=== PATIENT | female | born 1980 | race Caucasian/White ===

== ENCOUNTER → 2016-06-01 | Outpatient (REF) | payer OTHER ==
[~2016-06-01] MED LIST: CENTTAB47 PO; LEXA1TAB2 PO; MIRA33504 PO; PROTPAK PO; SUCR1TA PO
== END ==
LOC: M SFHCLERA 14:41
PROVIDERS: ATTEND Physician Assistant
DX: J02.9 Acute pharyngitis, unspecified (principal)

== ENCOUNTER 2016-06-15 14:54 | Emergency (ER) | payer OTHER ==
[2016-06-15] MEDS ORDERED: NORCO, ANEXSIA 5/325MG TABLET (HYDROcodone/ACETAMINOPHEN) As Ordered ONE (16:48)
[2016-06-15] MEDS ORDERED: ONDANSETRON 4 MG ORAL DISINTEGRATING TAB (S0181) As Ordered ONE (16:48)
--- NOTE | 2016-06-15 18:04 | EDDOCDS ---
Nurse's Notes [facility] Name: Myrna Chaves Age: 36 yrs Sex: Female : 1980 Arrival Date: 06/15/2016 Time: 14:54 Bed PR Private MD: Josue Ruth MD Diagnosis: Concussion;Unspecified injury of head Presentation: 06/15 15:02 Presenting complaint: Patient states: Pt states she was squatting while cleaning her ead fridge and when she stood up she hit her head on the freezer shelf. Incident occurred at approx 0730 this morning. Reports pain to left side of head and face. This patient has no additional risk factors. Mechanism of Injury: resulted from standing up. Adult Sepsis Screening: The patient does not have new or worsening altered mentation. Patient's respiratory rate is less than 22. Systolic blood pressure is greater than 100. Patient has a qSOFA score of 0- Negative Sepsis Screen. Suicide/Homicide risk assessment- the patient denies having any suicidal and/or homicidal ideations and does not present with any other emotional, behavioral or mental health complaints. Status: The patient is a dependent. Transition of care: patient was not received from another setting of care. 15:02 Acuity: NEEMA Level 3 ead 15:02 Method Of Arrival: Walkin/Carried/Asstd ead Triage Assessment: 15:04 General: Appears in no apparent distress, Behavior is appropriate for age, cooperative. ead Pain: Location: face Pain currently is 7 out of 10 on a pain scale. HIV screening NA for this visit Offered previously. Neurological: Level of Consciousness is awake, alert, obeys commands, Oriented to person, place, time, Reports headache. Respiratory: Airway is patent Respiratory effort is even, unlabored. GI: Reports vomiting. Derm: Skin is pink, warm & dry. 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 Protonix 40 mg Oral TbEC 1 tab bid 2. multivitamin Oral tab 1 tab daily 3. Tylenol 500 mg Oral (Last dose: 06/15/2016 14:00) - PMHx: GERD; - PSHx: Appendectomy; Arthroscopy, Knee- Right; - Social history: Smoking status: Patient states former smoker of tobacco. No barriers to communication noted, The patient speaks fluent Barbadian, Speaks appropriately for age. - : The pt / caregiver states he / she is not on anticoagulants. Home medication list is obtained from the patient. - Exposure Risk Screening:: None identified. Screenin:50 Screening information is obtained from the patient. Fall risk: No risks identified. kr3 Assistance ADL's: requires no assistance with activities of daily living. Abuse/DV Screen: The patient / caregiver reports he/she is: not in a situation that causes fear, pain or injury. Nutritional screening: No deficits noted. Advance Directives: Currently, there is no health care proxy. home support is adequate. Assessment: 16:50 Reassessment: Patient appears in no apparent distress at this time. Pain: Location: kr3 face Pain currently is 6 out of 10 on a pain scale. Neurological: No deficits noted. Respiratory: Respiratory effort is even, unlabored. Derm: Skin is normal. Vital Signs: 14:55 BP 136 / 77; Pulse 95; Resp 18 S; Temp 98.9(O); Pulse Ox 98% on R/A; Weight 79.38 kg dd6 (R); Height 5 ft. 10 in. (177.80 cm) (R); 17:50 Pain 3/10; mcp 18:02 BP 123 / 79; Pulse 91; Resp 18; Temp 99.3(T); Pulse Ox 94% on R/A; Pain 3/10; mcp 14:55 Body Mass Index 25.11 (79.38 kg, 177.80 cm) dd6 Vitals: 14:55 Log In Time: June 15, 2016 at 14:53. dd6 [place] Coma Score: 15:02 Eye Response: spontaneous(4). Verbal Response: oriented(5). Motor Response: obeys ead commands(6). Total: 15. ED Course: 14:55 Patient visited by Asim Esteves PCA. dd6 14:55 Josue Ruth is Private Physician. dd6 14:55 Patient moved to Waiting dd6 14:56 Patient moved to Pre RCE dd6 15:03 Triage Initiated ead 15:23 Patient moved to Triage 1 [facility] 16:33 Remy Horta PA is PHCP. mo1 16:33 Ashley Kim MD is Attending Physician. mo1 16:47 Patient visited by Remy Horta PA. mo1 16:49 Patient moved to TR2 kr3 16:50 The patient / caregiver is instructed regarding the plan of care and ED course. kr3 Accompanied by Family Member, Patient has correct armband on for positive identification. 17:54 Josue Ruth is Referral Physician. mo1 17:56 Patient moved to PR1 / 25 kr3 18:01 No IV's were initiated during this patient's visit. No procedures done that require mcp assistance. Administered Medications: 16:50 Drug: HYDROcodone-acetaminophen 1 tabs [hydrocodone 5 mg-acetaminophen 325 mg tablet (1 kr3 tabs)] Route: PO; 17:50 Follow up: Pain 3 Adult; Response: Confirmed pt not driving.; Pain is decreased [facility] 16:50 Drug: Ondansetron ODT 4 mg [ondansetron 4 mg disintegrating tablet (1 tabs)] Route: PO; kr3 Order Results: There are currently no results for this order. Outcome: 17:54 Discharge ordered by Provider. mo1 18:03 Patient left the ED. mcp Signatures: Dorie Greenberg RN RN mcp Robie, Kathleen, RN RN kr3 Asim Esteves, SPORTS MANAGEMENT INTERNSHIP SPORTS MANAGEMENT INTERNSHIP dd6 Remy Horta PA PA mo1 Shaunna Jackson,RN SONJA ead MTDD
--- NOTE | 2016-06-15 18:04 | EDDOCDS ---
Physician Documentation [facility] Name: Myrna Chaves Age: 36 yrs Sex: Female : 1980 Arrival Date: 06/15/2016 Time: 14:54 Bed PR Private MD: Josue Ruth MD Disposition: 06/15/16 17:54 Discharged to Home/Self Care. Impression: Concussion, Unspecified injury of head. - Condition is Stable. - Discharge Instructions: Concussion, Adult, Head Injury, Adult. - Prescriptions for [place] 5- 325 mg Oral Tablet - take 1 tablet by ORAL route every 6 hours As needed MDD: 4 tabs; 12 tablet. ZOFRAN ODT 4 mg - dissolve 1 tablet by ORAL route 4 times per day As needed do not chew, do not swallow whole; 10 tablet. - Work Release Form - 3 day, Medication Reconciliation, Local Pharmacy Hours form. - Follow up: Josue Ruth; When: Call to arrange an appointment; Reason: Recheck today's complaints, Continuance of care. - Problem is new. - Symptoms are unchanged. Historical: - Allergies: Azithromycin (Hives); - Home Meds: 1. Protonix 40 mg Oral TbEC 1 tab bid 2. multivitamin Oral tab 1 tab daily 3. Tylenol 500 mg Oral (Last dose: 06/15/2016 14:00) - PMHx: GERD; - PSHx: Appendectomy; Arthroscopy, Knee- Right; - Social history: Smoking status: Patient states former smoker of tobacco. No barriers to communication noted, The patient speaks fluent Bengali, Speaks appropriately for age. - : The pt / caregiver states he / she is not on anticoagulants. Home medication list is obtained from the patient. - Exposure Risk Screening:: None identified. 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 10 in. (177.80 cm) (R); 17:50 Pain 3/10; mcp 18:02 BP 123 / 79; Pulse 91; Resp 18; Temp 99.3(T); Pulse Ox 94% on R/A; Pain 3/10; [facility] 14:55 Body Mass Index 25.11 (79.38 kg, 177.80 cm) dd6 [place] Coma Score: 15:02 Eye Response: spontaneous(4). Verbal Response: oriented(5). Motor Response: obeys ead commands(6). Total: 15. MDM: 16:47 HYDROcodone-acetaminophen 5 mg-325 mg 1 tabs PO once ordered. mo1 16:47 Ondansetron ODT Oral Disintegrating Tablet 4 mg PO once ordered. mo1 16:48 CT Head Without Contrast Ordered. EDTX 16:51 Financial registration complete. gb Administered Medications: 16:50 Drug: HYDROcodone-acetaminophen 1 tabs [hydrocodone 5 mg-acetaminophen 325 mg tablet (1 kr3 tabs)] Route: PO; 17:50 Follow up: Pain 3/10 Adult; Response: Confirmed pt not driving.; Pain is decreased [facility] 16:50 Drug: Ondansetron ODT 4 mg [ondansetron 4 mg disintegrating tablet (1 tabs)] Route: PO; kr3 Signatures: Dispatcher MedHost EDMS Dorie Greenberg RN RN [facility] Sayra Root, Reg Reg gb Remy Horta PA PA mo1 Shaunna Jackson RN RN ead Robie, Kathleen RN kr3 MTDD
--- NOTE | 2016-06-15 18:28 | REP ---
CT BRAIN WITHOUT IV CONTRAST: CT brain is performed without IV contrast. Ventricles are normal in size and position. There is no midline shift. No abnormal densities are seen. There is no acute hemorrhage. There is no extra axial fluid collection. Jose-white differentiation is well maintained. No skull fracture is seen. Paranasal sinuses demonstrate no air fluid level. Trace mucosal thickening is seen in the ethmoid sinuses. IMPRESSION: No evidence of acute bleed or fracture. Signed by Anil Jose MD 06/15/2016 07:59 P
--- NOTE | 2016-06-17 19:04 | EDDOCDS ---
Physician Documentation [facility] Name: Myrna Chaves Age: 36 yrs Sex: Female : 1980 Arrival Date: 06/15/2016 Time: 14:54 Bed PR Private MD: Josue Ruth MD Disposition: 06/15/16 17:54 Discharged to Home/Self Care. Impression: Concussion, Unspecified injury of head. - Condition is Stable. - Discharge Instructions: Concussion, Adult, Head Injury, Adult. - Prescriptions for [place] 5- 325 mg Oral Tablet - take 1 tablet by ORAL route every 6 hours As needed MDD: 4 tabs; 12 tablet. ZOFRAN ODT 4 mg - dissolve 1 tablet by ORAL route 4 times per day As needed do not chew, do not swallow whole; 10 tablet. - Work Release Form - 3 day, Medication Reconciliation, Local Pharmacy Hours form. - Follow up: Josue Ruth; When: Call to arrange an appointment; Reason: Recheck today's complaints, Continuance of care. - Problem is new. - Symptoms are unchanged. Historical: - Allergies: Azithromycin (Hives); - Home Meds: 1. Protonix 40 mg Oral TbEC 1 tab bid 2. multivitamin Oral tab 1 tab daily 3. Tylenol 500 mg Oral (Last dose: 06/15/2016 14:00) - PMHx: GERD; - PSHx: Appendectomy; Arthroscopy, Knee- Right; - Social history: Smoking status: Patient states former smoker of tobacco. No barriers to communication noted, The patient speaks fluent Thai, Speaks appropriately for age. - : The pt / caregiver states he / she is not on anticoagulants. Home medication list is obtained from the patient. - Exposure Risk Screening:: None identified. 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 10 in. (177.80 cm) (R); 17:50 Pain 3/10; mcp 18:02 BP 123 / 79; Pulse 91; Resp 18; Temp 99.3(T); Pulse Ox 94% on R/A; Pain 3/10; mcp 14:55 Body Mass Index 25.11 (79.38 kg, 177.80 cm) dd6 [place] Coma Score: 15:02 Eye Response: spontaneous(4). Verbal Response: oriented(5). Motor Response: obeys ead commands(6). Total: 15. MDM: 16:47 HYDROcodone-acetaminophen 5 mg-325 mg 1 tabs PO once ordered. mo1 16:47 Ondansetron ODT Oral Disintegrating Tablet 4 mg PO once ordered. mo1 16:48 CT Head Without Contrast Ordered. EDMS 16:51 Financial registration complete. gb 18:08 [facility] Payment Agreement was scanned into [employer] and attached to record. gb 06/16 03:15 T-Sheet-- Draft Copy was scanned into [employer] and attached to record. hs2 Administered Medications: 06/15 16:50 Drug: HYDROcodone-acetaminophen 1 tabs [hydrocodone 5 mg-acetaminophen 325 mg tablet (1 kr3 tabs)] Route: PO; 17:50 Follow up: Pain 3/10 Adult; Response: Confirmed pt not driving.; Pain is decreased [facility] 16:50 Drug: Ondansetron ODT 4 mg [ondansetron 4 mg disintegrating tablet (1 tabs)] Route: PO; kr3 Signatures: Dispatcher [employer] EDDorie Montes RN RN [facility] Sayra Root, Reg Reg gb Remy Horta PA PA mo1 Shaunna Jackson RN RN ead Stanton, Hillary, Reg Reg hs2 Bonnie Toledo RN kr3 The chart was reviewed and I authenticate all verbal orders and agree with the evaluation and treatment provided.Attachments: 18:08 [facility] Payment Agreement gb 06/16 03:15 T-Sheet-- Draft Copy hs2 Chart Complete MTDD
--- NOTE | 2016-06-17 19:04 | EDDOCDS ---
Physician Documentation [facility] Name: Myrna Chaves Age: 36 yrs Sex: Female : 1980 Arrival Date: 06/15/2016 Time: 14:54 Bed PR Private MD: Josue Ruth MD Disposition: 06/15/16 17:54 Discharged to Home/Self Care. Impression: Concussion, Unspecified injury of head. - Condition is Stable. - Discharge Instructions: Concussion, Adult, Head Injury, Adult. - Prescriptions for [place] 5- 325 mg Oral Tablet - take 1 tablet by ORAL route every 6 hours As needed MDD: 4 tabs; 12 tablet. ZOFRAN ODT 4 mg - dissolve 1 tablet by ORAL route 4 times per day As needed do not chew, do not swallow whole; 10 tablet. - Work Release Form - 3 day, Medication Reconciliation, Local Pharmacy Hours form. - Follow up: Josue Ruth; When: Call to arrange an appointment; Reason: Recheck today's complaints, Continuance of care. - Problem is new. - Symptoms are unchanged. Historical: - Allergies: Azithromycin (Hives); - Home Meds: 1. Protonix 40 mg Oral TbEC 1 tab bid 2. multivitamin Oral tab 1 tab daily 3. Tylenol 500 mg Oral (Last dose: 06/15/2016 14:00) - PMHx: GERD; - PSHx: Appendectomy; Arthroscopy, Knee- Right; - Social history: Smoking status: Patient states former smoker of tobacco. No barriers to communication noted, The patient speaks fluent Faroese, Speaks appropriately for age. - : The pt / caregiver states he / she is not on anticoagulants. Home medication list is obtained from the patient. - Exposure Risk Screening:: None identified. 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 10 in. (177.80 cm) (R); 17:50 Pain 3/10; mcp 18:02 BP 123 / 79; Pulse 91; Resp 18; Temp 99.3(T); Pulse Ox 94% on R/A; Pain 3/10; mcp 14:55 Body Mass Index 25.11 (79.38 kg, 177.80 cm) dd6 [place] Coma Score: 15:02 Eye Response: spontaneous(4). Verbal Response: oriented(5). Motor Response: obeys ead commands(6). Total: 15. MDM: 16:47 HYDROcodone-acetaminophen 5 mg-325 mg 1 tabs PO once ordered. mo1 16:47 Ondansetron ODT Oral Disintegrating Tablet 4 mg PO once ordered. mo1 16:48 CT Head Without Contrast Ordered. EDMS 16:51 Financial registration complete. gb 18:08 [facility] Payment Agreement was scanned into [employer] and attached to record. gb 06/16 03:15 T-Sheet-- Draft Copy was scanned into [employer] and attached to record. hs2 Administered Medications: 06/15 16:50 Drug: HYDROcodone-acetaminophen 1 tabs [hydrocodone 5 mg-acetaminophen 325 mg tablet (1 kr3 tabs)] Route: PO; 17:50 Follow up: Pain 3/10 Adult; Response: Confirmed pt not driving.; Pain is decreased [facility] 16:50 Drug: Ondansetron ODT 4 mg [ondansetron 4 mg disintegrating tablet (1 tabs)] Route: PO; kr3 Signatures: Dispatcher [employer] EDDorie Montes RN RN [facility] Sayra Root, Reg Reg gb Remy Horta PA PA mo1 Shaunna Jackson RN RN ead Stanton, Hillary, Reg Reg hs2 Bonnie Toledo RN kr3 The chart was reviewed and I authenticate all verbal orders and agree with the evaluation and treatment provided.Attachments: 18:08 [facility] Payment Agreement gb 06/16 03:15 T-Sheet-- Draft Copy hs2 Chart Complete MTDD
--- NOTE | 2016-06-17 19:04 | EDDOCDS ---
Nurse's Notes [facility] Name: Myrna Chaves Age: 36 yrs Sex: Female : 1980 Arrival Date: 06/15/2016 Time: 14:54 Bed PR Private MD: Josue Ruth MD Diagnosis: Concussion;Unspecified injury of head Presentation: 06/15 15:02 Presenting complaint: Patient states: Pt states she was squatting while cleaning her ead fridge and when she stood up she hit her head on the freezer shelf. Incident occurred at approx 0730 this morning. Reports pain to left side of head and face. This patient has no additional risk factors. Mechanism of Injury: resulted from standing up. Adult Sepsis Screening: The patient does not have new or worsening altered mentation. Patient's respiratory rate is less than 22. Systolic blood pressure is greater than 100. Patient has a qSOFA score of 0- Negative Sepsis Screen. Suicide/Homicide risk assessment- the patient denies having any suicidal and/or homicidal ideations and does not present with any other emotional, behavioral or mental health complaints. Status: The patient is a dependent. Transition of care: patient was not received from another setting of care. 15:02 Acuity: NEEMA Level 3 ead 15:02 Method Of Arrival: Walkin/Carried/Asstd ead Triage Assessment: 15:04 General: Appears in no apparent distress, Behavior is appropriate for age, cooperative. ead Pain: Location: face Pain currently is 7 out of 10 on a pain scale. HIV screening NA for this visit Offered previously. Neurological: Level of Consciousness is awake, alert, obeys commands, Oriented to person, place, time, Reports headache. Respiratory: Airway is patent Respiratory effort is even, unlabored. GI: Reports vomiting. Derm: Skin is pink, warm & dry. 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 Protonix 40 mg Oral TbEC 1 tab bid 2. multivitamin Oral tab 1 tab daily 3. Tylenol 500 mg Oral (Last dose: 06/15/2016 14:00) - PMHx: GERD; - PSHx: Appendectomy; Arthroscopy, Knee- Right; - Social history: Smoking status: Patient states former smoker of tobacco. No barriers to communication noted, The patient speaks fluent Turkmen, Speaks appropriately for age. - : The pt / caregiver states he / she is not on anticoagulants. Home medication list is obtained from the patient. - Exposure Risk Screening:: None identified. Screenin:50 Screening information is obtained from the patient. Fall risk: No risks identified. kr3 Assistance ADL's: requires no assistance with activities of daily living. Abuse/DV Screen: The patient / caregiver reports he/she is: not in a situation that causes fear, pain or injury. Nutritional screening: No deficits noted. Advance Directives: Currently, there is no health care proxy. home support is adequate. Assessment: 16:50 Reassessment: Patient appears in no apparent distress at this time. Pain: Location: kr3 face Pain currently is 6 out of 10 on a pain scale. Neurological: No deficits noted. Respiratory: Respiratory effort is even, unlabored. Derm: Skin is normal. Vital Signs: 14:55 BP 136 / 77; Pulse 95; Resp 18 S; Temp 98.9(O); Pulse Ox 98% on R/A; Weight 79.38 kg dd6 (R); Height 5 ft. 10 in. (177.80 cm) (R); 17:50 Pain 3/10; mcp 18:02 BP 123 / 79; Pulse 91; Resp 18; Temp 99.3(T); Pulse Ox 94% on R/A; Pain 3/10; mcp 14:55 Body Mass Index 25.11 (79.38 kg, 177.80 cm) dd6 Vitals: 14:55 Log In Time: June 15, 2016 at 14:53. dd6 [place]pe Coma Score: 15:02 Eye Response: spontaneous(4). Verbal Response: oriented(5). Motor Response: obeys ead commands(6). Total: 15. ED Course: 14:55 Patient visited by Asim Esteves PCA. dd6 14:55 Josue Ruth is Private Physician. dd6 14:55 Patient moved to Waiting dd6 14:56 Patient moved to Pre RCE dd6 15:03 Triage Initiated ead 15:23 Patient moved to Triage 1 [facility] 16:33 Remy Horta PA is PHCP. mo1 16:33 Ashley Kim MD is Attending Physician. mo1 16:47 Patient visited by Remy Horta PA. mo1 16:49 Patient moved to TR2 kr3 16:50 The patient / caregiver is instructed regarding the plan of care and ED course. kr3 Accompanied by Family Member, Patient has correct armband on for positive identification. 17:54 Josue Ruth is Referral Physician. mo1 17:56 Patient moved to PR kr3 18:01 No IV's were initiated during this patient's visit. No procedures done that require [facility] assistance. 18:08 [facility] Payment Agreement was scanned into [employer] and attached to record. 18:31 CT Head Without Contrast Returned. EDIN 06/16 03:15 T-Sheet-- Draft Copy was scanned into [employer] and attached to record. hs2 Administered Medications: 06/15 16:50 Drug: HYDROcodone-acetaminophen 1 tabs [hydrocodone 5 mg-acetaminophen 325 mg tablet (1 kr3 tabs)] Route: PO; 17:50 Follow up: Pain 10 Adult; Response: Confirmed pt not driving.; Pain is decreased [facility] 16:50 Drug: Ondansetron ODT 4 mg [ondansetron 4 mg disintegrating tablet (1 tabs)] Route: PO; kr3 Order Results: Radiology Order: CT Head Without Contrast Test: CT Head Without Contrast REASON FOR EXAMINATION: Trauma; CT BRAIN WITHOUT IV CONTRAST:; ; CT brain is performed without IV contrast. Ventricles are normal in size and; position. There is no midline shift. No abnormal densities are seen. There is no; acute hemorrhage. There is no extra axial fluid collection. Jose-white; differentiation is well maintained. No skull fracture is seen. Paranasal sinuses; demonstrate no air fluid level. Trace mucosal thickening is seen in the ethmoid; sinuses.; ; IMPRESSION:; ; No evidence of acute bleed or fracture.; ; ; Signed by; Anil Jose MD 06/15/2016 07:59 P; Outcome: 17:54 Discharge ordered by Provider. mo1 18:03 Patient left the ED. [facility] Signatures: Dispatcher MedHost EDIN Dorie Greenberg RN RN [facility] Sayra Root, Reg Reg Bonnie Toledo RN RN kr3 Asim Esteves, WEDGER MACHINE WEDGER MACHINE dd6 Remy Horta PA PA mo1 Shaunna Jackson,RN RN fernandezd Susie Palencia, Reg Reg hs2 Chart Complete MTDD
== END 2016-06-15 18:03 | disposition home or self-care (01) ==
LOC: M ED 14:54
DX: S06.0X0A Concussion without loss of consciousness, initial encounter (principal); W22.8XXA Striking against or struck by other objects, initial encounter; Y92.019 Unspecified place in single-family (private) house as the place of occurrence of the external cause; Y93.89 Activity, other specified; Y99.8 Other external cause status; K21.9 Gastro-esophageal reflux disease without esophagitis; Z87.891 Personal history of nicotine dependence; Z79.899 Other long term (current) drug therapy; Z88.1 Allergy status to other antibiotic agents

== ENCOUNTER → 2017-02-28 | Outpatient (REF) | payer OTHER ==
[~2017-02-28] MED LIST changes: +MOTR200T44 PO; +NORCOTAB PO; +PHEN1SUP6 PR; +PROBCAP4 PO; +RANI15TA PO; +TYLE500T78 PO; +ZOFR4TAB3 PO
== END ==
LOC: M SFHCLERA 15:29
PROVIDERS: ATTEND Nurse Practitioner Family
DX: R30.0 Dysuria (principal)

== ENCOUNTER 2017-03-04 11:09 | Emergency (ER) | payer OTHER ==
[~2017-03-04] VITALS: Ht 177.8 cm; Wt 77.3 kg
[~2017-03-04 11:09] MED LIST changes: -MOTR200T44 PO; -NORCOTAB PO; -PHEN1SUP6 PR; -PROBCAP4 PO; -RANI15TA PO; -TYLE500T78 PO; -ZOFR4TAB3 PO
[2017-03-04] MEDS ORDERED: PROBCAP4 PO (11:24)
[2017-03-04] MEDS ORDERED: RANI15TA PO (11:24)
[2017-03-04] MEDS ORDERED: NS 1,000 ML IV ONE (12:15)
[2017-03-04] MEDS ORDERED: ONDANSETRON 4MG/2ML VIAL (J2405) IV ONE (12:15)
[2017-03-04] MEDS ORDERED: MORPHINE 4 MG/ML 1ML SYRINGE IV PRN (12:15)
[2017-03-04 13:00] LABS: BASO % 0.3 % (0.0-1.0); EOS % 0.1 % (0.0-3.0); IMMATURE GRANULOCYTE % 0.1 % (0-0); LYMPH # 2.6 10^3/uL (1.5-4.5); LYMPH % 26.7 % (24.0-44.0); MEAN CORPUSCULAR HEMOGLOBIN 30.1 pg (27.0-33.0); MEAN CORPUSCULAR HGB CONC 35.4 g/dl (32.0-36.5); MONO # 0.5 10^3/uL (0.0-0.8); MONO % 4.6 % (0.0-5.0); NEUTROPHILS # 6.7 10^3/uL (1.8-7.7); NEUTROPHILS % 68.2 % (36.0-66.0); PLATELET COUNT, AUTOMATED 271 10^3/uL (150-450); RED CELL DISTRIBUTION WIDTH 11.3 % (11.5-14.5); WHITE BLOOD COUNT 9.8 10^3/uL (4.0-10.0)
[2017-03-04 13:28] LABS: ALBUMIN 4.3 GM/DL (3.2-5.2); ALBUMIN/GLOBULIN RATIO 1.65 (1.00-1.93); ALKALINE PHOSPHATASE 48 U/L (45-117); ALT/SGPT 14 U/L (12-78); AMYLASE 43 U/L (25-115); ANION GAP 10 MEQ/L (8-16); AST/SGOT 6 U/L (15-37); BILIRUBIN,DIRECT 0.2 MG/DL (0.0-0.2); BILIRUBIN,TOTAL 0.5 MG/DL (0.2-1.0); BLOOD UREA NITROGEN 11 MG/DL (7-18); CALCIUM LEVEL 9.9 MG/DL (8.5-10.1); CARBON DIOXIDE LEVEL 25 MEQ/L (21-32); CHLORIDE LEVEL 103 MEQ/L (98-107); CREATININE FOR GFR 0.79 MG/DL (0.55-1.02); GLOMERULAR FILTRATION RATE > 60.0 (>60); GLUCOSE, FASTING 93 MG/DL (70-105); POTASSIUM SERUM 3.8 MEQ/L (3.5-5.1); SODIUM LEVEL 138 MEQ/L (136-145); TOTAL PROTEIN 6.9 GM/DL (6.4-8.2)
[2017-03-04 13:55] LABS: CONTROL LINE UCG INT CTR LINE PRESENT
[2017-03-04] MEDS ORDERED: PHEN1SUP6 PR (14:47)
[2017-03-04] MEDS ORDERED: NORCOTAB PO (15:07)
[2017-03-04 15:19] VITALS: BP 128/76
--- NOTE | 2017-03-04 15:41 | REP ---
Right upper quadrant sonography: History: Right upper quadrant pain. Comparison study: June 08, 2014. Findings: Scanning through the right upper quadrant of the abdomen demonstrates a normal sized, thin-walled gallbladder without evidence of stone or polyp. Common bile duct is normal measuring 0.6 cm in greatest diameter. No focal liver lesion is seen. Liver size is normal. No pancreatic abnormality is observed. No right renal abnormality is seen. There is no evidence of ascites. The right kidney measures 11.5 x 4.3 x 3.4 cm. Impression: Negative right upper quadrant sonography. Signed by Derrick Guaman MD 03/04/2017 12:39 P
[2017-03-27] MEDS ORDERED: TYLE500T78 PO (14:57)
[2017-03-27] MEDS ORDERED: MOTR200T44 PO (14:57)
[2017-03-27] MEDS ORDERED: PROTPAK PO (14:57)
== END 2017-03-04 15:20 | disposition home or self-care (01) ==
LOC: M ED 11:09
DX: K80.51 Calculus of bile duct without cholangitis or cholecystitis with obstruction (principal); N39.0 Urinary tract infection, site not specified; Z79.899 Other long term (current) drug therapy; Z88.1 Allergy status to other antibiotic agents
CPT/HCPCS: 76705; 80048; 80076; 81001; 81025; 82150; 83690; 84703; 85025; 96361; 96374; 96375; 99284; J2405

== ENCOUNTER 2017-03-11 14:23 | Emergency (ER) | payer OTHER ==
[~2017-03-11] VITALS: Ht 177.8 cm; Wt 77.3 kg
[~2017-03-11 14:23] MED LIST changes: +NORCOTAB PO; +PHEN1SUP6 PR; +PROBCAP4 PO; +RANI15TA PO
[2017-03-11] MEDS ORDERED: ONDANSETRON 4MG/2ML VIAL (J2405) IV ONE (16:45)
[2017-03-11] MEDS ORDERED: NS 1,000 ML IV ONE (16:45)
[2017-03-11] MEDS ORDERED: MORPHINE 4 MG/ML 1ML SYRINGE IV PRN (16:45)
[2017-03-11 17:22] LABS: BASO % 0.3 % (0.0-1.0); EOS % 0.1 % (0.0-3.0); IMMATURE GRANULOCYTE % 0.3 % (0-0); LYMPH # 3.2 10^3/uL (1.5-4.5); LYMPH % 27.2 % (24.0-44.0); MEAN CORPUSCULAR HEMOGLOBIN 29.8 pg (27.0-33.0); MEAN CORPUSCULAR HGB CONC 35.1 g/dl (32.0-36.5); MEAN CORPUSCULAR VOLUME 84.9 fl (80.0-96.0); MONO # 0.6 10^3/uL (0.0-0.8); NEUTROPHILS # 7.9 10^3/uL (1.8-7.7); NEUTROPHILS % 67.1 % (36.0-66.0); PLATELET COUNT, AUTOMATED 250 10^3/uL (150-450); RED CELL DISTRIBUTION WIDTH 11.1 % (11.5-14.5); WHITE BLOOD COUNT 11.7 10^3/uL (4.0-10.0)
[2017-03-11 17:51] LABS: ALBUMIN 4.2 GM/DL (3.2-5.2); ALBUMIN/GLOBULIN RATIO 1.24 (1.00-1.93); ALKALINE PHOSPHATASE 52 U/L (45-117); ALT/SGPT 16 U/L (12-78); ANION GAP 8 MEQ/L (8-16); AST/SGOT 7 U/L (15-37); BILIRUBIN,DIRECT 0.1 MG/DL (0.0-0.2); BILIRUBIN,TOTAL 0.6 MG/DL (0.2-1.0); BLOOD UREA NITROGEN 12 MG/DL (7-18); CALCIUM LEVEL 9.6 MG/DL (8.5-10.1); CARBON DIOXIDE LEVEL 23 MEQ/L (21-32); CHLORIDE LEVEL 105 MEQ/L (98-107); CREATININE FOR GFR 0.87 MG/DL (0.55-1.02); GLOMERULAR FILTRATION RATE > 60.0 (>60); GLUCOSE, FASTING 86 MG/DL (70-105); POTASSIUM SERUM 3.7 MEQ/L (3.5-5.1); SODIUM LEVEL 136 MEQ/L (136-145); TOTAL PROTEIN 7.6 GM/DL (6.4-8.2)
[2017-03-11] MEDS ORDERED: KETOROLAC 30 MG/ML VIAL (J1885) IV ONE (18:15)
--- NOTE | 2017-03-11 19:10 | REPUSA ---
HISTORY: RUQ PAIN. TECHNIQUE: Limited right upper quadrant ultrasound examination with color flow Doppler imaging. FINDINGS: Liver is of normal size with no pathologic mass seen. No ascites is seen. Biliary tree and gallbladder are normal with no gallstones seen. Gallbladder wall thickness measures 1.6 mm and common bile duct measures 2.5-5.1 mm. Limited imaging of the pancreas is normal with no mass seen. Right kidney is normal and measures 9.6 x 3.9 x 5 point or centimeter with no mass, hydronephrosis, or calculi seen. No pathologic mass or abnormal fluid collections seen in the right upper quadrant. IMPRESSION: Negative right upper quadrant ultrasound examination as discussed above. .
[2017-03-11] MEDS ORDERED: ZOFR4TAB3 PO (20:15)
[2017-03-11] MEDS ORDERED: NORCOTAB PO (20:15)
[2017-03-11 20:33] VITALS: BP 109/66
[2017-03-27] MEDS ORDERED: PROTPAK PO (14:57)
[2017-03-27] MEDS ORDERED: TYLE500T78 PO (14:57)
[2017-03-27] MEDS ORDERED: MOTR200T44 PO (14:57)
== END 2017-03-11 20:34 | disposition home or self-care (01) ==
LOC: M ED 14:23
DX: K80.50 Calculus of bile duct without cholangitis or cholecystitis without obstruction (principal); F41.9 Anxiety disorder, unspecified; Z87.891 Personal history of nicotine dependence; Z88.1 Allergy status to other antibiotic agents; Z79.899 Other long term (current) drug therapy
CPT/HCPCS: 76705; 80048; 80076; 81001; 81025; 83690; 85025; 96374; 96375; 99284; J1885; J2405

== ENCOUNTER → 2017-03-14 | Outpatient (CLI) | payer OTHER ==
[~2017-03-14] MED LIST changes: +MOTR200T44 PO; +TYLE500T78 PO; +ZOFR4TAB3 PO
[2017-03-14 11:17] LABS: MICROSCOPIC INDICATED? MAN YES (NO)
[2017-03-14 11:20] LABS: MEAN CORPUSCULAR HEMOGLOBIN 29.4 pg (27.0-33.0); MEAN CORPUSCULAR HGB CONC 34.4 g/dl (32.0-36.5); MEAN CORPUSCULAR VOLUME 85.4 fl (80.0-96.0); RED CELL DISTRIBUTION WIDTH 11.1 % (11.5-14.5); WHITE BLOOD COUNT 9.1 10^3/uL (4.0-10.0)
[2017-03-14 11:24] LABS: HYALINE CAST, URINE NONE SEEN /lpf (0-1); SQUAMOUS EPITHELIAL CELL URINE LARGE AMOUNT /hpf (SMALL AMT)
[2017-03-14 11:25] LABS: MICROSCOPIC EXAM PERFORMED; WBC, URINE 20-30 /hpf (0-3)
[2017-03-14 11:26] LABS: BACTERIA, URINE MOD AMOUNT
[2017-03-14 11:31] LABS: CBCMD ORDERED? YES (YES)
[2017-03-14 12:01] LABS: BASOPHILS 1 % (0-4)
== END ==
LOC: M LAB 10:24
PROVIDERS: ATTEND Surgery
DX: R10.11 Right upper quadrant pain (principal)

== ENCOUNTER → 2017-04-27 | Outpatient (CLI) | payer OTHER ==
[2017-04-27 14:13] LABS: MEAN CORPUSCULAR HEMOGLOBIN 30.1 pg (27.0-33.0); MEAN CORPUSCULAR VOLUME 88.6 fl (80.0-96.0); PLATELET COUNT, AUTOMATED 333 10^3/uL (150-450); RED CELL DISTRIBUTION WIDTH 11.7 % (11.5-14.5); WHITE BLOOD COUNT 7.3 10^3/uL (4.0-10.0)
[2017-04-27 15:00] LABS: ALBUMIN 4.5 GM/DL (3.2-5.2); ALBUMIN/GLOBULIN RATIO 1.55 (1.00-1.93); ALKALINE PHOSPHATASE 50 U/L (45-117); ALT/SGPT 16 U/L (12-78); AMYLASE 54 U/L (25-115); ANION GAP 6 MEQ/L (8-16); AST/SGOT 7 U/L (7-37); BILIRUBIN,TOTAL 0.5 MG/DL (0.2-1.0); BLOOD UREA NITROGEN 16 MG/DL (7-18); CALCIUM LEVEL 10.1 MG/DL (8.5-10.1); CARBON DIOXIDE LEVEL 29 MEQ/L (21-32); CHLORIDE LEVEL 103 MEQ/L (98-107); CREATININE FOR GFR 0.79 MG/DL (0.55-1.02); GLOMERULAR FILTRATION RATE > 60.0 (>60); GLUCOSE, FASTING 86 MG/DL (70-105); POTASSIUM SERUM 4.7 MEQ/L (3.5-5.1); SODIUM LEVEL 138 MEQ/L (136-145); TOTAL PROTEIN 7.4 GM/DL (6.4-8.2)
[2017-04-29 00:07] LABS: ENDOMYSIAL ABY IgA Negative (Negative)
== END ==
LOC: M SMT 08:54
PROVIDERS: ATTEND Physician Assistant Medical
DX: K59.00 Constipation, unspecified (principal)

== ENCOUNTER → 2017-06-07 | Outpatient (CLI) | payer OTHER | LOC: M LRY 10:28 | DX: S99.922A Unspecified injury of left foot, initial encounter (principal); X58.XXXA Exposure to other specified factors, initial encounter; Y92.89 Other specified places as the place of occurrence of the external cause; Y93.89 Activity, other specified; Y99.8 Other external cause status | CPT/HCPCS: 73630; G0463 ==

== ENCOUNTER 2018-08-21 10:19 | Inpatient (IN) | payer OTHER ==
[~2018-08-21] VITALS: Ht 177.8 cm; Wt 90.0 kg
[~2018-08-21 10:19] MED LIST changes: +HYDR-3715 PO; -NORCOTAB PO; +ZOFR4TAB14 PO; -ZOFR4TAB3 PO
[2018-08-21] MEDS ORDERED: PANT40TA3 PO (10:34)
[2018-08-21] MEDS ORDERED: CITA40TA4 PO (10:34)
[2018-08-21 11:01] LABS: HEMATOCRIT 42.6 % (36.0-47.0); HEMOGLOBIN 14.6 g/dl (12.0-15.5); MEAN CORPUSCULAR HEMOGLOBIN 29.7 pg (27.0-33.0); MEAN CORPUSCULAR HGB CONC 34.3 g/dl (32.0-36.5); MEAN CORPUSCULAR VOLUME 86.6 fl (80.0-96.0); PLATELET COUNT, AUTOMATED 337 10^3/uL (150-450); RED BLOOD COUNT 4.92 10^6/uL (4.00-5.40); WHITE BLOOD COUNT 11.4 10^3/uL (4.0-10.0)
[2018-08-21 11:43] LABS: ACETAMINOPHEN LEVEL < 2.0 UG/ML (10.0-30.0); ALBUMIN 4.1 GM/DL (3.2-5.2); ALT/SGPT 22 U/L (12-78); BILIRUBIN,DIRECT < 0.1 MG/DL (0.0-0.2); BILIRUBIN,TOTAL 0.5 MG/DL (0.2-1.0); BLOOD UREA NITROGEN 10 MG/DL (7-18); CALCIUM LEVEL 9.2 MG/DL (8.5-10.1); CARBON DIOXIDE LEVEL 24 MEQ/L (21-32); CHLORIDE LEVEL 106 MEQ/L (98-107); CREATININE FOR GFR 0.83 MG/DL (0.55-1.30); ETHYL ALCOHOL (ETHANOL) < 0.003 % (0.000-0.010); GLOMERULAR FILTRATION RATE > 60.0 (>60); GLUCOSE, FASTING 88 MG/DL (70-100); SALICYLATE LEVEL < 1.7 MG/DL (5.0-30.0); SODIUM LEVEL 138 MEQ/L (136-145); THYROID STIMULATING HORMONE 0.934 uIU/ML (0.358-3.740); TOTAL PROTEIN 7.3 GM/DL (6.4-8.2)
[2018-08-21 11:57] LABS: HCG, SERUM QUALITATIVE NEGATIVE (NEGATIVE)
[2018-08-21 12:00] LABS: AMPHETAMINES LEVEL URINE NEGATIVE (NEGATIVE); BARBITURATES URINE NEGATIVE (NEGATIVE); BENZODIAZEPINES URINE NEGATIVE (NEGATIVE); CANNABINOIDS URINE NEGATIVE (NEGATIVE); COCAINE METABOLITE URINE NEGATIVE (NEGATIVE); METHADONE URINE NEGATIVE (NEGATIVE); OPIATES URINE NEGATIVE (NEGATIVE); PHENCYCLIDINE URINE NEGATIVE (NEGATIVE)
[2018-08-21] MEDS ORDERED: MOM 30ML SUSPENSION UDC PO PRN (22:45)
[2018-08-21] MEDS ORDERED: ACETAMINOPHEN TAB 650MG DOSE (2X325MG) PO PRN (22:45)
[2018-08-21] MEDS ORDERED: traZODone 50 MG TAB PO PRN (22:45)
[2018-08-21] MEDS ORDERED: MAALOX 30 ML SUSP *UDC PO PRN (22:45)
[2018-08-21 23:09] VITALS: BP 141/80
[2018-08-22 06:35] VITALS: BP 138/72
[2018-08-22] MEDS: NICOTINE 21MG/24HR 1 EA TRANSDERMAL TD SCH (08:13)
[2018-08-22] MEDS ORDERED: hydrOXYzine 50 MG TAB PO PRN (12:45)
--- NOTE | 2018-08-22 13:18 | MHHPEPDOC ---
General Legal Status: 9.39 Chief Complaint "I had too much to drink, apparently but I have not been depressed and I'm not suicidal". History of Present Illness HISTORY OF THE PRESENT ILLNESS: Patient is a 38 -year-old , female, who as per ED report: "Pt. states she has been feeling depressed, worsening over past couple weeks. She reports hhaving vague suicidal thoughts, stating she doesn't think she would act on them but unsure if she continues to feel so depressed without getting help.She states she hs had thoughts of driving her car into a tree. She reports that she went to walk in clinic today, was not able to be seen due to high volume of pt's. She then had her bring her to ER, stating she is not able to wait any longer to see someone because she feels so overwhelmed. She has been taking cCelexa 40 mg and states it is no longer working as it did. She is pleasant, communicative, appears quite depressed, tearful." Psychiatric Review of Systems Depression (2 or more weeks): depressed mood, anhedonia, insomnia/hypersomnia (either sleeps all day or doesn't sleep at all), feelings of excess/guilt (she feels this is affecting her son), feelings of worthlesness (She has gained weight since being on Celexa, she has gained 40-50 pounds, she has increasded too much on the wrong foods (wrong foods)), decreased energy, difficulty concentrating (sometimes she is foggy ), appetite changes, psychomotor changes, suicidal thoughts (she had only one thought over the weekend) Jodi (4 or more days of): denies Psychosis: denies PTSD: denies Anxiety: gen/non-specific anxiety, situational anxiety, stressor related anxiety, panic attacks Anxiety/ 6 months or more of: restlessness, keyed up, easily fatigued, difficulty concentrating, irritability (close to her period, she becomes easily frustrated), muscle tension (sometimes "I feel more muscle twitches", is not constant., mainly when she's laying down or sitting on the couch trying to relax), sleep disturbance Past Psychiatric History Previous Psychiatric Diagnosis: Diagnosed with LOKESH, she was started on Celexa, it helped her with anxiety but she gained weight Previous Psychiatric Admissions: Denies. Suicide Attempts: Denies Psychiatric Follow-up: Denies, but she wants to get established with a therapist or a psychiatrist or both Psychiatric medications: Celexa and prior to Celexa, she took Zoloft but she gained weight as well (She has gained it with Celexa). Past Medical History Head Injury: Yes (She had a concussion about 1.5 years ago, she got a CT scan in here and it was normal) Seizures: No Hospitalizations: Yes (For an appendectomy in 2004 and for vaginal delivery) Surgeries: Yes (appendectomy and vaginal delivery of her son (7 years old)) Family Medical/Psychiatric HX Medical Problems Mother is bipolar, her side of the family is bipolar too. In her paternal side of the family there's blood clots and heart attacks Psychiatric Disorders: Yes (bipolar d/o in mother and maternal side of the family) Addiction: Yes (Smoking) Suicide Attemps/Completions: Yes (Mother. She tried to choke herself by tying a scarf to her neck.) Addiction History nicotine (She quit in 2009), alcohol, other (weed, when she was in college, 15 years ago) Social History Childhood: "it was good". 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 Legal: Denies Marital: she's been for 10 years and she has a 7 year old boy. Mental Status Examination General Appearance: well groomed, appears stated age, hospital scubs/clothing Build: overweight Demeanor: preoccupied Eye Contact: average Activity: average Behavior: cooperative Speech: clear, spontaneous, reg/rate,rhythm,volume Mood: depressed, anxious Affect: appropriate, congruent, anxious, other (depressed, almost tearful at times) Thought Process: logical/linear, associative Thought Content (Delusions): none reported Thought Content (Other): preoccupied Thought Content (Aggressive): none reported Perception (Hallucinations): none reported Perception (Other): none reported Cognition (Impairment of): none reported Cognition(Intelligence Est.): average Oriented: Awake, Alert, Oriented times three Insight: good Judgment: Good Psychosis: Denies Diagnoses 1. Major Depressive Disorder 2. Generalized Anxiety Disorder Assessment Patient is insightful, she knows she needed to be hospitalized, she says that she "broke down" now that her is back (he is in the [employer] and he was not in this area) she felt that she finally could let her feelings out because he can take care of the dog, she will not be alone with her child struggling with depression as she has been, because he can take care of their child too. she was in the [employer] but she some years ago because she needed to take care of their child. She has a maternal history of bipolar disorder and knows she is at risk of developing the disease but she didn't endorse feelings/symptoms of jodi. she says her mother is more depressed than manic and so are other family members from her mother's side. Problem List Problems: (1) Anxiety associated with depression Status: Chronic Initial Treatment Plan 1. Patient was admitted on a [9.39] status. 2. Complete history was obtained. 3. With patients permission, family will be contacted and database will be expanded. 4. Patients medication regimen will be reviewed and changed accordingly. 5. Patient will be provided with protected environment. 6. Patient will be treated with individual, group, and milieu therapies. 7. Patient will receive supportive psych-education. 8. Discharge planning will commence immediately. 9. Outpatient follow-up treatment will be strongly recommended. 10. The initial treatment plan will focus initially on: * Depression. * anxiety * Risk for suicide. * Substance abuse. ESTIMATED LENGTH OF STAY: 5-7 DAYS. TIME SPENT COUNSELING AND COORDINATING INITIAL CARE: 60 minutes. Vital Signs Vital Signs Date Time Temp Pulse Resp B/P (MAP) Pulse Ox O2 Delivery O2 Flow Rate FiO2 08/22/18 06:35 99.1 76 18 138/72 (94) 08/21/18 19:55 99 Room Air Medications Scheduled Citalopram Hydrobromide (Citalopram Hydrobromide) 40 Mg Tab, 40 MG PO DAILY, (Reported) Pantoprazole Sodium (Pantoprazole Sodium) 40 Mg Tab, 40 MG PO DAILY, (Reported) Allergies Coded Allergies: azithromycin (Verified Allergy, Intermediate, HIVES, 08/21/18) morphine (Verified Adverse Reaction, Intermediate, MUSCLE TIGHTNESS, 08/21/18) LASHAUN VELARDE MD Aug 22, 2018 12:36
[2018-08-22] MEDS: VENLAFAXINE 37.5 MG TAB PO SCH (13:44)
[2018-08-22 18:00] VITALS: BP 118/62
[2018-08-22] MEDS: ARIPiprazole 2 MG TAB PO SCH (20:10)
[2018-08-22] MEDS: PANTOPRAZOLE 40MG TAB (PROTONIX) PO SCH (20:11)
--- NOTE | 2018-08-22 20:27 | HPE ---
DATE OF ADMISSION: 08/21/2018 CHIEF COMPLAINT: Medical admission note. PRIMARY CARE PROVIDER: Mireya Cisse. HISTORY OF THE PRESENT ILLNESS: The patient is a 38-year-old female who has been admitted, states that she has been feeling depressed and was having suicidal thoughts, and that she has had too much to drink lately. Otherwise see psychiatric note for full details. PAST MEDICAL HISTORY: Gastroesophageal reflux disease. Alcohol abuse. PAST SURGICAL HISTORY: Appendectomy in 2004. Anterior cruciate ligament (ACL) repair in 2009. HOME MEDICATIONS: - Protonix 40 mg daily FAMILY HISTORY: On her mother's side - bipolar disorder, father's side - heart disease. SOCIAL HISTORY: She lives with her and son. She has about a 10 pack-year history of tobacco but quit 2 years ago. Drinks once a month and usually two glasses of wine. No illicit substance abuse. 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 ALLERGIES: AZITHROMYCIN - hives. MORPHINE - shortness of breath. REVIEW OF SYSTEMS: A 10-point review of systems is negative. OBJECTIVE: VITAL SIGNS: Temperature 100.6 at the time of her presentation yesterday morning, temperature currently 99.1, pulse 76, respiratory rate 18, blood pressure 138/72, oxygen saturation 99% on room air. GENERAL: She is a pleasant middle-aged female, awake, alert, oriented times three, sitting out of bed. She does not appear to be in acute distress. She is examined, was accompanied by a female staff member. HEENT: She is wearing glasses. Cranial nerves II-XII are grossly intact. She has moist mucous membranes. CARDIOVASCULAR: S1, S2 regular. RESPIRATORY EXAM: Clear. ABDOMINAL EXAM: Benign. EXTREMITIES: No clubbing, cyanosis, or edema. LABORATORY STUDIES: She presented with a WBC of 11.4, hemoglobin 14.6, platelet 337. Chemistry panel: Sodium 138, potassium 4.0, chloride 106, bicarbonate 24, BUN 10, creatinine 0.8. TSH within normal limits. HCG is negative. Urine toxicology is negative. No microbiology or imaging. ASSESSMENT AND PLAN: This is a 38-year-old female admitted for depressive disorder. PROBLEMS: 1. Depressive disorder, managed as per psychiatry. 2. Fever. The patient did have a temperature of 100.6 at the time of her presentation, and she did have leukocytosis. I will recheck a CBC, draw blood cultures, order a UA with reflex urine culture, as well as a repeat BMP and monitor her for any recurrence in her fevers. My suspicion is that this is related to alcohol abuse, and she may be exhibiting some withdrawal symptoms. Will have to monitor her closely as she denies a history of this. 3. Gastroesophageal reflux disease. She will be continued on her Protonix, and she will require close followup with her primary care provider. 4. Further management as per psychiatry. Followup with primary care provider (PCP) on discharge. :
[2018-08-22 21:08] LABS: BLOOD UREA NITROGEN 20 MG/DL (7-18); CALCIUM LEVEL 9.3 MG/DL (8.5-10.1); CARBON DIOXIDE LEVEL 28 MEQ/L (21-32); CHLORIDE LEVEL 105 MEQ/L (98-107); CREATININE FOR GFR 0.92 MG/DL (0.55-1.30); GLOMERULAR FILTRATION RATE > 60.0 (>60); GLUCOSE, FASTING 106 MG/DL (70-100); POTASSIUM SERUM 4.1 MEQ/L (3.5-5.1); SODIUM LEVEL 139 MEQ/L (136-145)
[2018-08-22 21:10] LABS: HEMATOCRIT 41.9 % (36.0-47.0); HEMOGLOBIN 14.3 g/dl (12.0-15.5); MEAN CORPUSCULAR HEMOGLOBIN 29.5 pg (27.0-33.0); MEAN CORPUSCULAR HGB CONC 34.1 g/dl (32.0-36.5); MEAN CORPUSCULAR VOLUME 86.6 fl (80.0-96.0); PLATELET COUNT, AUTOMATED 354 10^3/uL (150-450); RED BLOOD COUNT 4.84 10^6/uL (4.00-5.40); WHITE BLOOD COUNT 10.3 10^3/uL (4.0-10.0)
--- NOTE | 2018-08-22 21:57 | ECGEPIP ---
Stationary ECG Study [facility] - ED Test Date: 2018-08-21 Pat Name: WILLIAMS FRIEDMAN Department: Room: - Gender: F Reporting Process Consultant: PMO : 1980 Requested By: Ashley Kim Order Number: [id number] Reading MD: Guero Brown Measurements Intervals [place] Rate: 55 P: 53 MD: 157 QRS: 60 QRSD: 85 T: 18 QT: 430 QTc: 413 Interpretive Statements SINUS BRADYCARDIA INCOMPLETE RIGHT BUNDLE BRANCH BLOCK NSTTW ABNORMALITIES SIMILAR TO 01/07/15 Electronically Signed On 08-22-2018 21:57:39 EDT by Guero Brown
[2018-08-23 06:36] VITALS: BP 134/62
[2018-08-23] MEDS: NICOTINE 21MG/24HR 1 EA TRANSDERMAL TD SCH (09:00)
[2018-08-23] MEDS ORDERED: VENLAFAXINE 37.5 MG TAB PO SCH (09:00)
[2018-08-23] MEDS: VENLAFAXINE 37.5 MG TAB PO SCH (09:09)
[2018-08-23] MEDS: PANTOPRAZOLE 40MG TAB (PROTONIX) PO SCH (09:09)
[2018-08-23 18:00] VITALS: BP 132/82
[2018-08-23] MEDS: ARIPiprazole 2 MG TAB PO SCH (20:24)
--- NOTE | 2018-08-23 20:31 | MHIPNPDOC ---
[facility] Progress Note Progress Note DATE OF SERVICE: 08/23/18 HISTORY: Chief Complaint "I had too much to drink, apparently but I have not been depressed and I'm not suicidal". History of Present Illness HISTORY OF THE PRESENT ILLNESS: Patient is a 38 -year-old , female, who as per ED report: "Pt. states she has been feeling depressed, worsening over past couple weeks. She reports hhaving vague suicidal thoughts, stating she doesn't think she would act on them but unsure if she continues to feel so depressed without getting help.She states she hs had thoughts of driving her car into a tree. She reports that she went to walk in clinic today, was not able to be seen due to high volume of pt's. She then had her bring her to ER, stating she is not able to wait any longer to see someone because she feels so overwhelmed. She has been taking cCelexa 40 mg and states it is no longer working as it did. She is pleasant, communicative, appears quite depressed, tearful." VITAL SIGNS: See below. NEW TEST RESULTS: See below CURRENT MEDICATIONS: See below. MENTAL STATUS EXAMINATION: Patient is a 38 year old female, who is alert, cooperative, dressed in hospital clothes, pleasant. Speech: Is normal in rate, tone and volume, spontaneous and fluent. Language skills are good. Thought processes including: Linear, coherent, intact. Thought content: Goal orientated, she wants to return home with her and son. Abstract reasoning, and computation: good Description of associations: good Description of abnormal or psychotic thoughts: denies SI, denies HI, denies thought delusions, denies AV hallucinations. Judgment: good. Insight: good. Orientation: x 3. Recent and remote memory: intact. Attention span and concentration: good. Language: normal. Fund of knowledge: above average. Mood: less depressed, less anxious "I feel functional today. I feel I can go home and take care of things". Affect: Congruent with mood.. DIAGNOSES: 1. Major Depressive Disorder 2. Generalized Anxiety Disorder ASSESSMENT:Spoke with the patient about discharging her tomorrow or a day after tomorrow, it depends on how she is doing tomorrow and how her perceives that she is doing. Patient is not suicidal, she is not psychotic, she still looks a little bit anxious but overall, she has improved. She reports she felt a little drowsy after she took Abilify but she went to sleep almost immediately. MANAGEMENT PLAN: Increase Effexor to 75 mgs Po QAM. she will continue to take Abilify 2 mgs PO QHS TIME SPENT: 20 minutes. Vital Signs Vital Signs Date Time Temp Pulse Resp B/P (MAP) Pulse Ox O2 Delivery O2 Flow Rate FiO2 08/23/18 06:36 97.8 82 14 134/62 (86) 08/21/18 19:55 99 Room Air Current Medications Current Medications Acetaminophen (Tylenol Tab) 650 mg Q6HP PRN PO HEADACHE or DISCOMFORT; Start 08/21/18 at 22:45 Al Hydrox/Mg Hydrox/Simethicone (Mylanta) 30 ml Q4HP PRN PO HEARTBURN/INDIGESTION; Start 08/21/18 at 22:45 Aripiprazole (AbiLIFY) 2 mg QHS PO Last administered on 08/22/18at 20:10; Start 08/22/18 at 21:00 Home Med (Med Rec Complete!) ASDIRECTED XX ; Start 08/21/18 at 20:15; Stop 08/21/18 at 20:15; Status DC Hydroxyzine HCl (Atarax) 50 mg Q4HP PRN PO ANXIETY/AGITATION Last administered on 08/22/18at 13:44; Start 08/22/18 at 12:45 Magnesium Hydroxide (Milk Of Magnesia) 30 ml DAILYPRN PRN PO CONSTIPATION; Start 08/21/18 at 22:45 Nicotine (Nicoderm Cq 21mg) 1 patch DAILY TD ; Start 08/22/18 at 09:00; Stop 08/23/18 at 09:21; Status DC Pantoprazole Sodium (Protonix) 40 mg DAILY PO Last administered on 08/23/18at 09:09; Start 08/22/18 at 09:00 Trazodone HCl (Desyrel) 50 mg QHSP PRN PO INSOMNIA; Start 08/21/18 at 22:45 Venlafaxine HCl (Effexor) 37.5 mg DAILY PO Last administered on 08/23/18at 09:09; Start 08/22/18 at 09:00 Venlafaxine HCl (Effexor) 37.5 mg DAILY PO ; Start 08/23/18 at 09:00; Stop 08/23/18 at 09:00; Status DC Allergies Coded Allergies: azithromycin (Verified Allergy, Intermediate, HIVES, 08/21/18) morphine (Verified Adverse Reaction, Intermediate, MUSCLE TIGHTNESS, 08/21/18) LASHAUN VELARDE MD Aug 23, 2018 20:31
[2018-08-24 06:38] VITALS: BP 132/80
[2018-08-24] MEDS: PANTOPRAZOLE 40MG TAB (PROTONIX) PO SCH (08:27)
[2018-08-24] MEDS ORDERED: VENLAFAXINE 37.5 MG TAB PO SCH (09:00)
[2018-08-24] MEDS ORDERED: VENL37TA PO (12:26)
[2018-08-24] MEDS ORDERED: HYDRO50TAB PO (12:26)
[2018-08-24] MEDS ORDERED: TRAZO50TA PO (12:26)
[2018-08-24] MEDS ORDERED: ARIP1TAB4 PO (12:26)
--- NOTE | 2018-08-26 15:48 | MHDSPDOC ---
[facility] Discharge Summary Discharge Summary DATE OF ADMISSION: Aug 21, 2018 at 22:37 DATE OF DISCHARGE: Aug 24, 2018 at 12:42 DISCHARGE DIAGNOSES: 1. Major Depressive Disorder 2. Generalized Anxiety Disorder REASON FOR ADMISSION: Chief Complaint "I had too much to drink, apparently but I have not been depressed and I'm not suicidal". History of Present Illness HISTORY OF THE PRESENT ILLNESS: Patient is a 38 -year-old , female, who as per ED report: "Pt. states she has been feeling depressed, worsening over past couple weeks. She reports hhaving vague suicidal thoughts, stating she doesn't think she would act on them but unsure if she continues to feel so de pressed without getting help.She states she hs had thoughts of driving her car into a tree. She reports that she went to walk in clinic today, was not able to be seen due to high volume of pt's. She then had her bring her to ER, stating she is not able to wait any longer to see someone because she feels so overwhelmed. She has been taking cCelexa 40 mg and states it is no longer working as it did. She is pleasant, communicative, appears quite depressed, tearful." CONSULTANTS INVOLVED: None TREATMENT AND PROGRESS ON THE UNIT : The patient was very pleasant and cooperative, she was insightful. She said she was aware of her depression and she had felt a relieve now that her was back. she explained that when he was away ( is in the [employer]), she felt she had to be strong all the time to be able to take care of the house, finances, 7 year old son but now that he is back she can let go, she can finally be able to take care of herself. She reported that her mom is bipolar and there are several family members from her mother's side that have bipolar disorder and her mother always educated her and her siblings about their emotions. She reported feeling depressed for several weeks, endorsing anxiety and passive SI.. she denied symptoms of gaby. She had a good response to medications, attended groups and tired to be distracted by reading books. This writer producer ascribed Venlafaxine, low dose, 37.5 mg PO daily, Abilify 2 mgs PO QHS as an antidepressant booster and a s a mood stabilizer too, because she has a h/o bipolar disorder on her maternal side of the family. TW also prescribed Trazodone 50 mgs PO QHSP for insomnia and Hydroxyzine 50 mgs PO QHSP for anxiety HOSPITAL COURSE: As above DISCHARGE ASSESSMENT: The patient was not homicidal, not suicidal and not psychotic at the time of her discharge. She was not experiencing negative/adverse effects from medications, she was goal orientated. Her mood and affect were brighter, happy to be with her family again. MENTAL STATUS EXAMINATION ON DISCHARGE: Patient is a 38 year old female, who is alert, cooperative, dressed in hospital clothes, pleasant. Speech: Is normal in rate, tone and volume, spontaneous and fluent. Language skills are good. Thought processes including: Linear, coherent, intact. Thought content: Goal orientated, she wants to return home with her and son. Abstract reasoning, and computation: good Description of associations: good Description of abnormal or psychotic thoughts: denies SI, denies HI, denies thought delusions, denies AV hallucinations. Judgment: good. Insight: good. Orientation: x 3. Recent and remote memory: intact. Attention span and concentration: good. Language: normal. Fund of knowledge: above average. Mood: "I'm read, I want to be with my son again, I miss him so much". Affect: Congruent with mood, full, reactive, appropriate. MEDICATIONS ON DISCHARGE: Scheduled Aripiprazole (Aripiprazole) 2 Mg Tab, 2 MG PO QHS for mood, #7 Pantoprazole Sodium (Pantoprazole Sodium) 40 Mg Tab, 40 MG PO DAILY, (Reported) Venlafaxine HCl (Venlafaxine HCl) 37.5 Mg Tab, 75 MG PO DAILY for depression, #14 Scheduled PRN Hydroxyzine HCl (Hydroxyzine HCl) 50 Mg Tab, 50 MG PO Q4HP PRN for ANXIETY/AGITATION, #28 Trazodone HCl (Trazodone HCl) 50 Mg Tab, 50 MG PO QHSP PRN for INSOMNIA, #7 PLAN/FOLLOWUP ARRANGEMENTS: Follow Up Care Education Label * Mental Health Appt 1 * Mental Health [facility] * Established With This Provider No * Therapist BINA SHAW * Date Aug 28, 2018 * Time 11:00 * Address of Clinic or Practice [address] [place] [address] * * Additional information Please remember to bring your photo ID and insurance card to this visit. Follow Up Care Education Label * Medical * Medical Follow Up [facility] * Established With This Provider Yes * Therapist MIYA RODRIGUEZ * Date Sep 06, 2018 * Time 15:20 * Address of Clinic or Practice [address] [place] [address] * * Additional information Please remember to bring your photo ID and insurance card to your visit. The amount of time spent in the coordination of care for this patient was approximately 30 minutes. Vital Signs/I&Os Vital Signs Date Time Temp Pulse Resp B/P (MAP) Pulse Ox O2 Delivery O2 Flow Rate FiO2 08/24/18 06:38 97.6 89 14 132/80 (97) 08/21/18 19:55 99 Room Air Laboratory Data Microbiology Microbiology 08/22/18 Blood Culture - Preliminary, Resulted No Growth after 72 hours. All specime... 08/22/18 Blood Culture - Preliminary, Resulted No Growth after 72 hours. All specime... Medications Scheduled Aripiprazole (Aripiprazole) 2 Mg Tab, 2 MG PO QHS for mood, #7 Pantoprazole Sodium (Pantoprazole Sodium) 40 Mg Tab, 40 MG PO DAILY, (Reported) Venlafaxine HCl (Venlafaxine HCl) 37.5 Mg Tab, 75 MG PO DAILY for depression, #14 Scheduled PRN Hydroxyzine HCl (Hydroxyzine HCl) 50 Mg Tab, 50 MG PO Q4HP PRN for ANXIETY/AGITATION, #28 Trazodone HCl (Trazodone HCl) 50 Mg Tab, 50 MG PO QHSP PRN for INSOMNIA, #7 Allergies Coded Allergies: azithromycin (Verified Allergy, Intermediate, HIVES, 08/21/18) morphine (Verified Adverse Reaction, Intermediate, MUSCLE TIGHTNESS, 08/21/18) LAHSAUN VELARDE MD Aug 26, 2018 15:45
== END 2018-08-24 12:42 | disposition home or self-care (01) | DRG 881 ==
LOC: M ED 10:19 → M ED INP 22:37 → M PSY 23:00
PROVIDERS: ADMIT Psychiatry & Neurology Psychiatry; ATTEND Psychiatry & Neurology Psychiatry
DX: F32.9 Major depressive disorder, single episode, unspecified (principal); R45.851 Suicidal ideations; F41.1 Generalized anxiety disorder; Z79.899 Other long term (current) drug therapy; Z88.5 Allergy status to narcotic agent; Z88.8 Allergy status to other drugs, medicaments and biological substances; F10.10 Alcohol abuse, uncomplicated; K21.9 Gastro-esophageal reflux disease without esophagitis

== ENCOUNTER → 2018-09-11 | Outpatient (REF) | payer OTHER ==
[~2018-09-11] MED LIST changes: +ARIP1TAB4 PO; +CITA40TA4 PO; +HYDRO50TAB PO; +PANT40TA3 PO; +TRAZO50TA PO; +VENL37TA PO
== END ==
LOC: M SFHCLERA 16:30
PROVIDERS: ATTEND Physician Assistant
DX: J02.9 Acute pharyngitis, unspecified (principal)

== ENCOUNTER → 2019-01-12 | Outpatient (REF) | payer OTHER ==
[~2019-01-12] MED LIST changes: +HYDR1TAB33 PO; -HYDRO50TAB PO; +TRAZ1TAB10 PO; -TRAZO50TA PO
== END ==
LOC: M SFHCLERA 09:53
PROVIDERS: ATTEND Nurse Practitioner Family
DX: Z01.89 Encounter for other specified special examinations (principal)
CPT/HCPCS: 86787; G0463

== ENCOUNTER 2020-01-13 10:29 | Emergency (ER) | payer OTHER ==
[~2020-01-13] VITALS: Ht 177.8 cm; Wt 86.1 kg
[~2020-01-13 10:29] MED LIST changes: +PANT40TA29 PO; -PANT40TA3 PO
[2020-01-13] MEDS ORDERED: KETOROLAC 30 MG/ML 1ML VIAL IV ONE ×2 (11:00→13:00)
[2020-01-13] MEDS ORDERED: METOCLOPRAMIDE INJ 10MG/2ML VIAL (J2765 PER 1) IV ONE (11:00)
[2020-01-13 11:14] LABS: BASO % 0.4 % (0.0-1.0); EOS % 0.3 % (0.0-3.0); HEMATOCRIT 41.7 % (36.0-47.0); HEMOGLOBIN 14.2 g/dl (12.0-15.5); LYMPH # 3.5 10^3/uL (1.5-5.0); LYMPH % 32.2 % (24.0-44.0); MEAN CORPUSCULAR HEMOGLOBIN 29.7 pg (27.0-33.0); MEAN CORPUSCULAR HGB CONC 34.1 g/dl (32.0-36.5); MEAN CORPUSCULAR VOLUME 87.2 fl (80.0-96.0); MONO # 0.5 10^3/uL (0.0-0.8); MONO % 4.9 % (0.0-5.0); NEUTROPHILS # 6.7 10^3/uL (1.5-8.5); NEUTROPHILS % 61.8 % (36.0-66.0); PLATELET COUNT, AUTOMATED 324 10^3/uL (150-450); RED BLOOD COUNT 4.78 10^6/uL (4.00-5.40); WHITE BLOOD COUNT 10.8 10^3/uL (4.0-10.0)
[2020-01-13 11:27] LABS: BLOOD UREA NITROGEN 15 MG/DL (7-18); C REACTIVE PROTEIN QUANTITATIV < 0.30 MG/DL (0.00-0.30); CALCIUM LEVEL 9.1 MG/DL (8.5-10.1); CARBON DIOXIDE LEVEL 26 MEQ/L (21-32); CHLORIDE LEVEL 108 MEQ/L (98-107); GLOMERULAR FILTRATION RATE > 60.0 (>60); GLUCOSE, FASTING 90 MG/DL (70-100); POTASSIUM SERUM 4.2 MEQ/L (3.5-5.1); SODIUM LEVEL 138 MEQ/L (136-145)
[2020-01-13 11:40] LABS: ERYTHROCYTE SEDIMENTATION RATE 4 mm/hr (0-20)
[2020-01-13] MEDS ORDERED: TOPIRAMATE (TopAMAX) 25 MG TAB PO ONE (13:00)
[2020-01-13 15:00] VITALS: BP 106/69
--- NOTE | 2020-02-12 08:42 | REP ---
CT BRAIN WITHOUT CONTRAST: HISTORY: Visual disturbance. COMPARISON: Head CT study from 06/15/16. FINDINGS: Preliminary digital pattern attendant radiograph is unremarkable. Bone window settings demonstrates an intact bony calvarium. The visualized paranasal sinuses are clear. No intraorbital abnormality is appreciated. On soft tissue window settings, the lateral, third and fourth ventricles are normal in size and position. Jose white differentiation pattern is normal above and below the tentorium. There is no evidence of intracranial hemorrhage. No mass, infarct, extra-axial fluid collection or midline shift is seen. IMPRESSION: Negative noncontrast head CT. MTDD
== END 2020-01-13 15:09 | disposition home or self-care (01) ==
LOC: M ED 10:29
DX: G43.B0 Ophthalmoplegic migraine, not intractable (principal); F33.9 Major depressive disorder, recurrent, unspecified; F41.9 Anxiety disorder, unspecified; Z79.899 Other long term (current) drug therapy; Z88.1 Allergy status to other antibiotic agents; Z88.5 Allergy status to narcotic agent
CPT/HCPCS: 70450; 80048; 85025; 85652; 86140; 93041; 94760; 96374; 96375; 96376; 99285; J1885; J2765

== ENCOUNTER → 2020-04-01 | Outpatient (REF) | LOC: M LAB 09:48 | PROVIDERS: ATTEND Nurse Practitioner Adult Health | DX: Z00.00 Encounter for general adult medical examination without abnormal findings (principal) ==

== ENCOUNTER 2020-10-31 08:48 | Emergency (ER) | payer OTHER ==
[~2020-10-31] VITALS: Ht 177.8 cm; Wt 77.3 kg
[2020-10-31] MEDS ORDERED: ADDE25CA (08:59)
[2020-10-31] MEDS ORDERED: AMPHET/DEXTR (08:59)
--- NOTE | 2020-10-31 10:00 | REP ---
INDICATION: pain/swelling post fall COMPARISON: None. TECHNIQUE: AP, lateral, bilateral oblique and sunrise views. FINDINGS: The osseous structures and joint spaces are intact and normal. There is no evidence for acute fracture or dislocation. Surrounding soft tissues are unremarkable. No subcutaneous emphysema or radiodense foreign body. IMPRESSION: No obvious acute fracture or dislocation.. <Electronically signed by [place] > 10/31/20 [id number]
[2020-10-31] MEDS ORDERED: NAPROXEN 250 MG TAB PO ONE (11:10)
[2020-10-31 11:15] VITALS: BP 123/65
== END 2020-10-31 11:24 | disposition home or self-care (01) ==
LOC: M ED 08:48
DX: S89.91XA Unspecified injury of right lower leg, initial encounter (principal); X50.9XXA Other and unspecified overexertion or strenuous movements or postures, initial encounter; Y92.018 Other place in single-family (private) house as the place of occurrence of the external cause; D68.2 Hereditary deficiency of other clotting factors; F41.9 Anxiety disorder, unspecified; Z79.899 Other long term (current) drug therapy; Z88.1 Allergy status to other antibiotic agents; Z88.5 Allergy status to narcotic agent

== ENCOUNTER → 2020-12-16 | Outpatient (CLI) | payer OTHER ==
[~2020-12-16] MED LIST changes: +ADDE25CA; +AMPHET/DEXTR
--- NOTE | 2020-12-16 11:53 | REP ---
INDICATION: INTERNAL DERANGEMENT OF RT KNEE. COMPARISON: Comparison right knee radiographs are from October 31, 2020.. TECHNIQUE: Axial, oblique coronal, and oblique sagittal imaging planes utilized for T1, proton density, and T2 weighted scans obtained in the usual fashion with without fat saturation. FINDINGS: Cortical and medullary bone signal intensity are normal. There is no evidence of occult fracture. There is minimal joint fluid in the suprapatellar bursa. No Caballero's cyst. Anterior and posterior cruciate ligaments are intact. Patellar and quadriceps tendons are unremarkable. There is no evidence of medial or lateral collateral ligament disruption. No articular cartilaginous defect is appreciated. There is no visible medial or lateral meniscal tear. IMPRESSION: No internal derangement seen. Minimal joint fluid. <Electronically signed by Andres Guaman > 12/16/20 [id number]
== END ==
LOC: M PLAIMG 08:25
PROVIDERS: ATTEND Orthopaedic Surgery Adult Reconstructive Orthopaedic Surgery
DX: M23.91 Unspecified internal derangement of right knee (principal)

== ENCOUNTER 2022-05-13 16:50 | Emergency (ER) | payer OTHER ==
[~2022-05-13] VITALS: Ht 177.8 cm; Wt 71.5 kg
[~2022-05-13 16:50] MED LIST changes: -CITA40TA4 PO; +CITA40TA7 PO
[2022-05-13] MEDS ORDERED: BUPR15TA PO (17:04)
[2022-05-13] MEDS ORDERED: KP F1200 PO (17:04)
[2022-05-13] MEDS ORDERED: VITMTA PO (17:04)
[2022-05-13] MEDS ORDERED: VYVA40CA3 PO (17:04)
[2022-05-13] MEDS ORDERED: ONDANSETRON 4MG 2ML VIAL IV ONE (17:35)
[2022-05-13] MEDS ORDERED: KETOROLAC 30 MG/ML 1ML VIAL IV ONE (17:35)
[2022-05-13 18:04] LABS: BASO % 0.3 % (0.0-1.0); EOS % 0.4 % (0.0-3.0); HEMATOCRIT 40.1 % (36.0-47.0); HEMOGLOBIN 13.9 g/dl (12.0-15.5); LYMPH # 3.2 10^3/uL (1.5-5.0); LYMPH % 32.8 % (24.0-44.0); MEAN CORPUSCULAR HGB CONC 34.7 g/dl (32.0-36.5); MEAN CORPUSCULAR VOLUME 86.4 fl (80.0-96.0); MONO # 0.6 10^3/uL (0.0-0.8); MONO % 5.7 % (2.0-8.0); NEUTROPHILS # 5.9 10^3/uL (1.5-8.5); NEUTROPHILS % 60.5 % (36.0-66.0); PLATELET COUNT, AUTOMATED 274 10^3/uL (150-450); RED BLOOD COUNT 4.64 10^6/uL (4.00-5.40); WHITE BLOOD COUNT 9.7 10^3/uL (4.0-10.0)
[2022-05-13 18:35] LABS: LIPASE 32 U/L (12-53)
[2022-05-13 18:36] LABS: CK-MB VALUE MASS < 1.0 NG/ML (<3.6)
[2022-05-13 18:37] LABS: ALBUMIN 4.3 G/DL (3.2-5.2); ALKALINE PHOSPHATASE 57 U/L (46-116); ALT/SGPT 15 U/L (7.0-40); AST/SGOT 12 U/L (<34); BILIRUBIN,DIRECT 0.2 MG/DL (<0.4); BILIRUBIN,TOTAL 0.5 MG/DL (0.3-1.2); CPK CREATINE PHOSPHOKINASE 68 U/L (34-145); MB/CK RELATIVE INDEX 1.47 (< OR =4); TOTAL PROTEIN 6.7 G/DL (5.7-8.2)
[2022-05-13 19:46] VITALS: BP 138/64
== END 2022-05-13 19:50 | disposition home or self-care (01) ==
LOC: M ED 16:50
DX: K59.00 Constipation, unspecified (principal); I45.10 Unspecified right bundle-branch block; Z87.440 Personal history of urinary (tract) infections; Z87.442 Personal history of urinary calculi; D68.2 Hereditary deficiency of other clotting factors; F90.9 Attention-deficit hyperactivity disorder, unspecified type; F84.9 Pervasive developmental disorder, unspecified; Z88.1 Allergy status to other antibiotic agents; Z88.5 Allergy status to narcotic agent; Z90.89 Acquired absence of other organs; Z79.899 Other long term (current) drug therapy
CPT/HCPCS: 74176; 80047; 80076; 81000; 82550; 82553; 83690; 84484; 84702; 85025; 93005; 96374; 96375; 99284; J1885; J2405